=== PATIENT | female | born 1940 | race Asian ===

== ENCOUNTER 2018-06-06 12:15 | Emergency (ER) | payer MEDICARE, MEDICAID ==
[~2018-06-06] VITALS: Ht 149.9 cm; Wt 45.4 kg
[2018-06-06] MEDS ORDERED: KETOROLAC TROMETH 60MG/2ML VIAL IM ONE (12:30)
[2018-06-06 16:24] VITALS: BP 136/79
== END 2018-06-06 18:38 | disposition home or self-care (01) ==
LOC: EDBD 12:15 → ER 12:15
DX: S39.012A Strain of muscle, fascia and tendon of lower back, initial encounter (principal); S76.012A Strain of muscle, fascia and tendon of left hip, initial encounter; R55 Syncope and collapse; W20.8XXA Other cause of strike by thrown, projected or falling object, initial encounter; Y93.89 Activity, other specified; Y92.39 Other specified sports and athletic area as the place of occurrence of the external cause; Y99.8 Other external cause status
CPT/HCPCS: 70450; 72100; 72192; 96372; 99284; J1885